=== PATIENT | female | born 1990 | race Hispanic/Latino ===

== ENCOUNTER 2019-02-24 16:26 | Day surgery (SDC) | payer OTHER ==
--- NOTE | 2019-02-24 16:54 | PDOC.FPROB ---
FMR OB H&P: HPI - History of Present Illness Chief Complaint: abdominal pain History of Present Illness: 28 yo at 31.2w presents with abdominal pain that has been worsening over the last few weeks. She notes that the pain was intermittent initially but today became more persistent and severe in her RUQ. She endorses nausea without vomiting. Denies fever. Also endorses loose stools without blood. Denies dysuria , hematuria, foul smelling urine. She endorses regular movement and denies vaginal bleeding, loss of fluid. She does endorse some white vaginal discharge. Primary Care Physician: Natasha Arvizu CNM FMR OB H&P: Current - Care : 2 Para: 1 Gestational age: 31.2 Due date: 04/26/2019 Dating Criteria: LMP/reported "early" ultrasound Course/Complications: none per patient FMR OB H&P: History - Past Medical History PMH: None - OB History OB History: , prior C/S - Surgical History Sx History: C/S - Social History Social History: Denies t/a/d - Family History Family History: Unremarkable FMR OB H&P: Medications - Current Home Medications: Medication Instructions Recorded Confirmed Type Vitamin 02/24/19 History Allergies/Adverse Reactions: Allergies Allergy/AdvReac Type Severity Reaction Status Date / Time No Known Allergies Allergy Unverified 02/24/19 17:01 FMR OB H&P: ROS - Review of Systems General: reports: weight/appetite/sleep changes. denies: fever/chills Eyes: denies: vision changes, double vision ENT: denies: nasal congestion, rhinorrhea Cardiovascular: denies: chest pain, palpitation Respiratory: denies: cough, congestion Gastrointestinal: reports: abdominal pain, nausea, diarrhea. denies: constipation, bright red blood, dark black tarry stools Genitourinary (Female): denies: dysuria, hematuria Musculoskeletal: denies: redness, swelling Integumentary: denies: itching, rash Endocrine: denies: polyuria FMR OB H&P: Vital Signs - Maternal Vital signs: BP 97/55 P 77 Tmax 98 R 16 - Heart Tones Baseline: 135 Variability: moderate Acceleration: present Deceleration: absent [place] contractions every: 20+ minutes FMR OB H&P: Physical Exam - Physical Exam General: awake, alert and oriented, other (appears uncomfortable) HEENT: normocephalic and atraumatic, other (dry MM) Neck: supple, trachea midline Heart: RRR, normal S1/S2 General: CTAB, no respiratory distress Abdomen: gravid, other (TTP, most in RUQ, +Starks's) Musculoskeletal: pulses present Skin: no rash, good tugor Lymphatic: no unusual bruising or bleeding, no purpura Psychiatric: intact recent and remote memory, good judgement and insight, normal mood and affect FMR OB H&P: A/P - Problem List (1) Current Visit: Yes Status: Acute (2) Abdominal pain affecting Current Visit: Yes Status: Acute Code(s): O26.899 - OTH RELATED CONDITIONS, UNSPECIFIED TRIMESTER; R10.9 - UNSPECIFIED ABDOMINAL PAIN Disposition: 28 yo at 31.2w here with RUQ abdominal pain suspicious for symptomatic cholelithiasis/cholecystitis 1. RUQ pain - DDX includes symptomatic cholelithiasis/cholecystitis, appendicitis, gastroenteritis, stomach ulcer, UTI/pyelo - UA +leuk est and bacteria, blood work unremarkable, VSS - Will order RUQ and RLQ sono - Morphine at this time for pain - Will give 1 dose of rocephin for suspected UTI and await further imaging - FHT reassuring, rare ctx 2. Vaginal discharge - VP3 ordered 3. 3T - No records available at this time - Patient reports uncomplicated until this point 4. Prior C/S x1 - Aware Discussion: Date/Time: 02/24/19 1652 This H&P was discussed with Dr. Cooper who agrees with the above documentation and plan. Signature: Archana Perrin MD, PGY-3
[2019-02-24] MEDS ORDERED: hydrALAZINE 20 MG/ML VIAL SLOW IVP PRN (17:00)
[2019-02-24] MEDS ORDERED: Morphine 2 MG/ML SYRINGE SLOW IVP SCH (18:15)
[2019-02-24] MEDS ORDERED: Lactated Ringer's 1,000 ML IV SCH (18:15)
[2019-02-24] MEDS ORDERED: Morphine 4 MG/ML VIAL ONE (18:20)
[2019-02-24 18:24] VITALS: BMI 29.8
[2019-02-24] MEDS ORDERED: cefTRIAXone\\ROCEPHIN 1 GM in Sodium Chloride 0.9% 100 ML IVPB SCH (18:45)
[2019-02-24] MEDS ORDERED: Morphine 4 MG/ML VIAL SLOW IVP SCH (18:45)
--- NOTE | 2019-02-24 18:59 | ULT ---
US Gallbladder RUQ History: Right upper quadrant pain Comparison: None. Findings: Real-time grayscale and color evaluation of the right upper quadrant of the abdomen was per formed. Pancreas aorta and IVC are not well seen. Diffuse increased hepatic echotexture. Liver measures 14.5 cm in length. No cholelithiasis. Portal vein is patent with antegrade flow. Common bile duct measures 3 mm. Right kidney measures 11 x 6.3 x 5.5 cm without mass, hydronephrosis, or abnormal calcifications Impression: 1. No significant hydronephrosis. 2. No acute gallbladder pathology. 3. Diffuse hepatic steatosis.
--- NOTE | 2019-02-24 20:51 | ULT ---
US Biophysical Profile History: Abdominal pain. heart deceleration Comparison: None. Findings: Real-time grayscale and color evaluation of the pelvis performed. Single viable intrauterine with heart rate documented at 149 bpm. The position is azra moe and the amount of fluid is adequate. ERICK: 16.7 cm. The placenta is anterior. Impression: Biophysical profile score is 8/8.
--- NOTE | 2019-02-24 20:52 | ULT ---
US Pelvic Limited History: Cervical length Comparison: None. Findings: [Measures 4.7 cm in length and is closed. The placenta is fundal. Heart rate is 149 bpm. Impression: Closed cervix measuring 4.7 cm.
--- NOTE | 2019-02-24 22:19 | PDOC.EVN ---
Event Note - Event Note Event Note: Patient had 1 isolated deceleration and therefor BPP ordered which was 8/8. Remainder of FHT reassuring. Cervical length > 4 cm. SVE closed/20/-3 with no pooling, LOF, bleeding. VP3 negative. Discussed sono findings including fatty infiltration and need for f/u pp. Pain has completely resolved and she is feeling well and desires to go home. Will send with 4 additional days of Keflex and recommended f/u with Natasha Light early this week. Return precautions discussed.
== END 2019-02-24 21:00 | disposition home or self-care (01) ==
LOC: L&D/OP 16:26
PROVIDERS: ATTEND Obstetrics & Gynecology
DX: O99.89 Other specified diseases and conditions complicating pregnancy, childbirth and the puerperium (principal); R10.11 Right upper quadrant pain; N89.8 Other specified noninflammatory disorders of vagina; O76 Abnormality in fetal heart rate and rhythm complicating labor and delivery; Z3A.31 31 weeks gestation of pregnancy
CPT/HCPCS: 76705; 76819; 76857; 87086; 87480; 87510; 87660; 96361; 96365; 96366; 96375; 99285; J0696; J2270; J3490

== ENCOUNTER 2019-04-22 18:15 | Inpatient (IN) | payer MEDICAID, OTHER, SELFPAY ==
[2019-04-22] MEDS ORDERED: hydrALAZINE 20 MG/ML VIAL SLOW IVP PRN ×2 (19:16→19:18)
[2019-04-22] MEDS ORDERED: hydrALAZINE 20 MG/ML VIAL ONE (19:16)
[2019-04-22 19:18] LABS: Amnisure Test RUPTURE DETECTED (No Rupture)
[2019-04-22] MEDS ORDERED: Lidocaine 1% (PF) 30 ML VIAL SC PRN (19:18)
[2019-04-22] MEDS ORDERED: Promethazine HCl 25 MG/ML VIAL IM PRN ×2 (19:18→20:24)
[2019-04-22] MEDS ORDERED: Diphenoxylate HCl/Atropine Tablet PO PRN ×2 (19:18)
[2019-04-22] MEDS ORDERED: Ibuprofen 800 MG TAB PO PRN (19:18)
[2019-04-22] MEDS: Lactated Ringer's 1,000 ML IV SCH ×2 (19:18→20:26)
[2019-04-22] MEDS ORDERED: NS / Oxytocin 40 units/1000ml 1,000 ML IV PRN (19:18)
[2019-04-22] MEDS ORDERED: Carboprost 250 MCG/ML AMP IM PRN (19:18)
[2019-04-22] MEDS ORDERED: Ondansetron PF 4 MG/2 ML Vial IVP PRN ×2 (19:18→20:24)
[2019-04-22] MEDS ORDERED: HYDROcodone/Acetaminophen 5/325 mg Tablet PO PRN ×2 (19:18)
[2019-04-22] MEDS ORDERED: Butorphanol Tartrate 1 MG/ML VIAL SLOW IVP PRN (19:18)
[2019-04-22 19:19] LABS: Amnisure Internal Control QC ACCEPTABLE (ACCEPTABLE)
[2019-04-22 19:33] VITALS: BMI 31.8
[2019-04-22 19:37] LABS: Mean Corpuscular Hemoglobin 31.9 pg (27.0-31.0); Mean Corpuscular Volume 91.1 fL (78.0-98.0); Mean Platelet Volume 9.3 fL (7.4-10.4); Platelet Count 248 thou/uL (130-400); RBC Distribution Width 12.7 % (11.5-14.5); Red Blood Cell (RBC) Count 3.44 mill/uL (4.20-5.40); White Blood Cell (WBC) Count 9.6 thou/uL (4.8-10.8)
[2019-04-22] MEDS ORDERED: Fentanyl 4 mcg/Bup 0.1% Cadd 100 ML ONE (19:38)
[2019-04-22] MEDS ORDERED: Lidocaine 1.5%/Epinephrine 1:200,000 5 ML AMPUL IJ ONE ×2 (19:39→19:57)
[2019-04-22 19:57] LABS: Anion Gap 14 mmol/L (10-20); BUN (Urea Nitrogen) 13 mg/dL (7.0-18.7); Calc. Creatinine Clearance 180 mL/min (70-130); Carbon Dioxide 19 mmol/L (22-29); Chloride 106 mmol/L (98-107); Potassium 4.1 mmol/L (3.5-5.1); Sodium 135 mmol/L (136-145)
[2019-04-22 19:58] LABS: ALT (SGPT) Less than 7 U/L (8-55); AST (SGOT) 15 U/L (5-34); Alkaline Phosphatase 143 U/L (40-150); Bilirubin, Total 0.2 mg/dL (0.2-1.2); Calcium 8.9 mg/dL (7.8-10.44); Estimated GFR-MDRD Greater than 90; Globulin 3.4 g/dL (2.4-3.5); Glucose 79 mg/dL (70-105); Protein, Total 6.4 g/dL (6.0-8.3)
[2019-04-22 20:15] LABS: Syphilis Antibody Nonreactive (Nonreactive)
[2019-04-22 20:16] LABS: HBSAg Index 0.17 S/CO (0-0.99); Hep B Surf Ag Non-Reactive S/CO (NonReactive)
[2019-04-22] MEDS ORDERED: diphenhydrAMINE 50 MG/ML VIAL IVP PRN (20:24)
[2019-04-22] MEDS ORDERED: Lactated Ringer's 500 ML IV PRN (20:24)
[2019-04-22] MEDS ORDERED: Naloxone HCl 0.4 mg/ml Vial IVP PRN ×2 (20:24)
[2019-04-22] MEDS ORDERED: Acetaminophen 325 MG TAB PO PRN (20:24)
[2019-04-22] MEDS ORDERED: ePHEDrine/0.9% NaCl/PF SYRINGE 50 mg/10 ml SLOW IVP PRN (20:24)
[2019-04-22] MEDS ORDERED: Communication Order-Pharmacy FS SCH (20:30)
[2019-04-22] MEDS ORDERED: Fentanyl 4 mcg/Bupivacaine 0.1% Cassette 100 ML EPIDURAL SCH (20:30)
[2019-04-22 21:52] LABS: Amphetamine Not Detected (NotDetected); Barbiturates Screen Not Detected (NotDetected); Benzodiazepine Screen Not Detected (NotDetected); Cocaine Metabolite Screen Not Detected (NotDetected); Medtox Control Line Valid? VALID (VALID); Medtox Reader # READER 1; Methadone Not Detected (NotDetected); Methamphetamine Not Detected (NotDetected); Opiate Screen Not Detected (NotDetected); Oxycodone Screen Not Detected (NotDetected); Phencyclidine (PCP) Not Detected (NotDetected); THC/Cannabinoid Screen Not Detected (NotDetected); Tricyclic Screen Not Detected (NotDetected)
[2019-04-22 21:59] LABS: Creatinine, Urine 130.45 mg/dL (47-110)
--- NOTE | 2019-04-22 23:22 | CON ---
DATE OF CONSULTATION: 04/22/2019 CONSULTING PROVIDER: Saniya Arvizu CNM. HISTORY OF PRESENT ILLNESS: This is a 28-year-old G2, P1-0-0-1 at 39 weeks and 3 days who presented to Labor and Delivery with complaint of contractions and leaking fluid. She was found to be ruptured and admitted. However, her blood pressures on admission were elevated in the [id number]-vglyhl range. The patient had also a prior requesting a TOLAC. The patient complains of a mild headache that is not unusual for her. She denies any right upper quadrant pain, vision changes, or other concerns. She is having painful contractions. REVIEW OF SYSTEMS: Negative for head, eyes, ears, nose, throat, cardiovascular, respiratory, GI, , neuro-psych, musculoskeletal, skin, or constitutional symptoms other than mentioned above. PAST MEDICAL HISTORY: None. PAST SURGICAL HISTORY: x1 for non-reassuring heart tones, remote from delivery. MEDICATIONS: vitamins. ALLERGIES: NO KNOWN DRUG ALLERGIES. SOCIAL HISTORY: Negative for tobacco, alcohol, or drug abuse. PHYSICAL EXAMINATION: VITAL SIGNS: Blood pressure 132 to 187 over 94 to 112, pulse 75 to 93. GENERAL: Awake, alert, no acute distress. CHEST: Nonlabored breathing. ABDOMEN: Gravid, soft, nontender to palpation. PELVIC: Cervix 4/70/-2 per nurse check. ASSESSMENT AND PLAN: A 28-year-old G2, P1-0-0-1 with; 1. Elevated blood pressures at term status post treatment with hydralazine. Pre -E labs are pending. We will continue to monitor. If persistent severe range blood pressures, we would recommend magnesium. 2. Prior x1, requesting trial of labor after . The patient's predicted chance of vaginal after is 51.6%; however, given the previous indication for , it is not unreasonable for trial. 3. Proceed with routine labor management and augmentation as needed. Please let us know if we could be of any further assistance in caring for this patient. Job ID: [id number] MTDD
[2019-04-23] MEDS ORDERED: Bupivacaine/Epinephrine 0.25% 30 ML VIAL ONE (00:01)
[2019-04-23] MEDS: NS / Oxytocin 40 units/1000ml 1,000 ML IV SCH ×2 (00:21→03:04)
--- NOTE | 2019-04-23 00:57 | PDOC.LDHP ---
Labor and Delivery H&P Chief complaint: contractions, loss of fluid HPI: Patient presents with contractions and thinking her water may have been leaking since 0900. Current gestational age (weeks): 39 Due date: 04/26/19 Dating criteria: last menstrual period, second trimester ultrasound Grav: 2 Para: 1 OB History Details: LTCS in 2010 for non reassuring FHTs. Current complications: none Abnormal US findings: No Past Medical History: None Current medications: pre-alfonso vitamins Previous surgical history: low tranverse CS Allergies/Adverse Reactions: Allergies Allergy/AdvReac Type Severity Reaction Status Date / Time No Known Allergies Allergy Verified 04/22/19 21:45 Social history: drug use (+ THC) - Physical Exam Abnormal vital signs: 187/112 at admission General: NAD Heart: RRR Lungs: nonlabored breathing Abdomen: gravid Extremeties: trace edema FHT: category 1 [place] contractions every: Q3mins - Vaginal Exam cm dilated: 4 Effacement: 75% Station: -1 - OB Labs Blood type: A RH: positive Antibody Screen: negative HIV: negative RPR: negative HEPSAg: negative 1 hour GCT: negative GBS: negative Urine drug screen: positive Rubella: immune - Assessment L&D Assessment: term rupture in membranes Elevated blood pressures on admission suspicious for Preeclampsia - Plan Plan: admit to L&D -: IV hydralazine. labs to r/o Preeclampsia Start Mag with subsequent elevated blood pressures Consulted with OB hospitalist reagarding elevated blood pressure as well as TOLAC.
--- NOTE | 2019-04-23 01:05 | PDOC.OPDEL ---
OB Operative/Delivery Note Delivery Dr/Surgeon: Luh Pre-Delivery Diagnosis: active labor Procedure/Post Delivery Dx: vaginal delivery after CS Weeks gestation: 39 Anesthesia: epidural - Findings A Sex: female Weight: 6 lb 9 oz - 1 min: 8 - 5 min: 9 - Additional Findings/Plan Placenta delivered: spontaneous (with manual removal of retained membranes) Repaired Obstetrical Laceration: 1st degree Estimated blood loss: 250mL Compilations/Other Findings: Retained membranes removed with raytec and manual curretage. Post delivery plan: routine recovery (protein/creatinie ratio elevated to 6.7 - Mandrel Puller of Preeclampsia. Will start mag with any severe range blood pressures or severe features in the pospartum period.)
[2019-04-23] MEDS ORDERED: Benzocaine-Menthol 82.5 ML CAN TOP PRN (02:51)
[2019-04-23] MEDS ORDERED: HYDROcodone/Acetaminophen 5/325 mg Tablet PO PRN (02:51)
[2019-04-23] MEDS ORDERED: Misoprostol 200 MCG TAB VAG PRN (02:51)
[2019-04-23] MEDS ORDERED: hydrALAZINE 20 MG/ML VIAL SLOW IVP PRN (02:51)
[2019-04-23] MEDS ORDERED: Milk Of Magnesia 30 ML UDCUP PO PRN (02:51)
[2019-04-23] MEDS ORDERED: Bisacodyl 10 MG SUPP PR PRN (02:51)
[2019-04-23 06:39] LABS: #Lymphocytes 1.4 thou/uL (1.20-3.40); #Monocytes 0.7 thou/uL (0.11-0.59); %Basophils 0.2 % (0.0-1.0); %Eosinophils 0.2 % (0.0-10.0); %Lymphocytes 9.8 % (21.0-51.0); %Monocytes 4.8 % (0.0-10.0); Hemoglobin 9.7 g/dL (12.0-16.0); Mean Corpuscular HGB CONC 33.8 g/dL (32.0-36.0); Mean Corpuscular Hemoglobin 31.1 pg (27.0-31.0); Mean Platelet Volume 9.4 fL (7.4-10.4); Platelet Count 220 thou/uL (130-400); Red Blood Cell (RBC) Count 3.11 mill/uL (4.20-5.40); White Blood Cell (WBC) Count 14.1 thou/uL (4.8-10.8)
[2019-04-23] MEDS: Ibuprofen 800 MG TAB PO SCH ×3 (06:41→21:54)
[2019-04-23] MEDS: Ferrous Sulfate 325 MG TAB PO SCH ×2 (08:35→18:14)
[2019-04-23] MEDS: Prenatal Vitamin 1 TAB PO SCH (08:35)
[2019-04-23] MEDS: Docusate Calcium (SURFAK) 240 MG CAP PO SCH ×2 (08:36→20:01)
--- NOTE | 2019-04-23 08:41 | PDOC.PP ---
Post Progress Note Post Day #: 0 Subjective: Patient is doing well. Denies severe features including WILSON, RUQ pain, or changes in vision. She is urinating well. has not pased gas or had a BM. Denies any edema or pain in the lower extremities. PO intake tolerated: yes Flatus: no Ambulation: yes Vital Signs (12 hours) Temp Pulse Resp BP Pulse Ox 04/23/19 07:55 98.0 F 79 20 114/79 96 04/23/19 04:15 98.2 F 80 14 128/80 04/23/19 03:00 81 16 114/77 99 04/22/19 21:46 99 Weight Weight 189 lb - Physical Examination General: NAD Cardiovascular: no m/r/g, RRR Respiratory: clear to auscultation bilaterally, non-labored breathing Abdominal: + bowel sounds, lochia (scant) Fundus firm & at: -1 Extremities: negative homans (B) Deviation from normal: DTR +2, normal Skin: no rash Perineum: intact Neurological: no gross focal deficits Psychiatric: A&Ox3, normal affect Result Diagrams: 04/23/19 06:20 04/22/19 19:27 Additional Labs: Post Labs Blood Type A POSITIVE 04/22/19 19:27 Hep Bs Antigen Non-Reactive S/CO (NonReactive) 04/22/19 19:27 (1) Vaginal after () Code(s): O34.219 - MATERNAL CARE FOR UNSP TYPE SCAR FROM PREVIOUS DEL Status: Acute (2) Proteinuria Code(s): R80.9 - PROTEINURIA, UNSPECIFIED Status: Acute (3) Preeclampsia Code(s): O14.90 - UNSPECIFIED PRE-ECLAMPSIA, UNSPECIFIED TRIMESTER Status: Acute - Assessment/Plan A s/p with now normotensive blood pressures and NML PPD zero exam. P: continue to evalute for signs of PREE. routine PP care Discharge home tomorrow if clinically appropriate.
[2019-04-23] MEDS ORDERED: Adacel (T-DAP) 0.5 ML SYRINGE IM ONE (09:00)
[2019-04-23] MEDS: HYDROcodone/Acetaminophen 5/325 mg Tablet PO PRN ×2 (14:18→19:59)
[2019-04-24] MEDS: HYDROcodone/Acetaminophen 5/325 mg Tablet PO PRN ×2 (03:49→08:06)
[2019-04-24] MEDS: Ibuprofen 800 MG TAB PO SCH (05:59)
[2019-04-24] MEDS: Ferrous Sulfate 325 MG TAB PO SCH (08:06)
[2019-04-24] MEDS: Prenatal Vitamin 1 TAB PO SCH (08:06)
[2019-04-24] MEDS: Docusate Calcium (SURFAK) 240 MG CAP PO SCH (08:06)
[2019-04-24 11:35] VITALS: BP 109/72; TEMP 98.1
== END 2019-04-24 13:45 | disposition home or self-care (01) | DRG 807 ==
LOC: L&D/OP 18:15 → L&D 19:20 → 3SW 04-23 02:56
PROVIDERS: ADMIT Obstetrics & Gynecology; ATTEND Obstetrics & Gynecology
PROC: 10E0XZZ Delivery of Products of Conception, External Approach (ICD-10-PCS; principal; 2019-04-23)
PROC: 0HQ9XZZ Repair Perineum Skin, External Approach (ICD-10-PCS; 2019-04-23)
DX: O42.92 Full-term premature rupture of membranes, unspecified as to length of time between rupture and onset of labor (principal); Z37.0 Single live birth; O70.0 First degree perineal laceration during delivery; O34.211 Maternal care for low transverse scar from previous cesarean delivery; O14.94 Unspecified pre-eclampsia, complicating childbirth; O73.1 Retained portions of placenta and membranes, without hemorrhage; Z3A.39 39 weeks gestation of pregnancy
CPT/HCPCS: 36415; 51702; 80053; 80306; 82570; 84112; 84156; 85025; 85027; 86780; 86850; 86900; 86901; 87340; 99285; J0360; J2001; J3490